=== PATIENT | male | born 1975 | race Caucasian/White ===

== ENCOUNTER 2023-04-16 15:08 | Emergency (ER) | payer OTHER, SELFPAY ==
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
[2023-04-16 15:13] VITALS: BP 145/96; PULSE 108; RESP 18; TEMP 36.6; O2SAT 97
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
[2023-04-16] MEDS: CYCLOBENZAPRINE HCL 10 MG TABLET PO (17:18)
[2023-04-16] MEDS: NAPROXEN 500 MG TABLET PO (17:49)
[2023-04-16 18:30] VITALS: BP 152/111; PULSE 84; RESP 16
== END 2023-04-16 18:30 | disposition home or self-care (01) ==
PROVIDERS: Emergency Provider Physician Assistant
DX: M47.27 Other spondylosis with radiculopathy, lumbosacral region (principal); V63.5XXA Driver of heavy transport vehicle injured in collision with car, pick-up truck or van in traffic accident, initial encounter
CPT/HCPCS: 72131; 99284; A9270